=== PATIENT | female | born 1940 | race Caucasian/White ===

== ENCOUNTER 2016-03-13 09:07 | Outpatient (CLI) | payer MEDICARE, BC ==
[2016-03-13 09:32] LABS: #Basophils 0.1 thou/uL (0.0-0.2); #Eosinphils 0.2 thou/uL (0.0-0.7); #Monocytes 0.4 thou/uL (0.11-0.59); %Basophils 1.7 % (0.0-1.0); %Monocytes 8.5 % (0.0-10.0); Hematocrit 41.7 % (36.0-47.0); Mean Platelet Volume 8.4 fL (7.4-10.4); Red Blood Cell (RBC) Count 4.54 mill/uL (4.20-5.40); White Blood Cell (WBC) Count 4.7 thou/uL (4.8-10.8)
[2016-03-13 09:51] LABS: ALT (SGPT) 31 U/L (0-55); AST (SGOT) 22 U/L (5-34); Alkaline Phosphatase 57 U/L (40-150); Bilirubin, Direct 0.2 mg/dL (0.1-0.3); Bilirubin, Total 0.6 mg/dL (0.2-1.2); Protein, Total 6.7 g/dL (5.8-8.1)
== END 2016-03-13 09:08 | disposition home or self-care (01) ==
LOC: BURLAB 09:07
PROVIDERS: ATTEND Allergy & Immunology
DX: L50.1 Idiopathic urticaria (principal)
CPT/HCPCS: 36415; 80076; 85025

== ENCOUNTER 2016-06-01 14:32 | Outpatient (CLI) | payer MEDICARE, BC ==
[2016-06-01 14:55] LABS: #Basophils 0.1 thou/uL (0.0-0.2); #Eosinphils 0.1 thou/uL (0.0-0.7); #Lymphocytes 1.7 thou/uL (1.20-3.40); #Monocytes 0.4 thou/uL (0.11-0.59); #Neutrophils 2.6 thou/uL (1.40-6.50); %Basophils 1.5 % (0.0-1.0); %Eosinophils 2.7 % (0.0-10.0); %Lymphocytes 34.9 % (21.0-51.0); %Monocytes 7.7 % (0.0-10.0); %Neutrophils 53.3 % (42.0-75.0); Hemoglobin 13.8 g/dL (12.0-16.0); Mean Corpuscular HGB CONC 33.2 g/dL (32.0-36.0); Mean Corpuscular Hemoglobin 30.4 pg (27.0-31.0); Mean Corpuscular Volume 91.3 fl (81.0-99.0); Mean Platelet Volume 9.2 fL (7.4-10.4); Platelet Count 148 thou/uL (130-400); RBC Distribution Width 11.9 % (11.5-14.5); Red Blood Cell (RBC) Count 4.56 mill/uL (4.20-5.40); White Blood Cell (WBC) Count 4.9 thou/uL (4.8-10.8)
[2016-06-01 15:46] LABS: ALT (SGPT) 16 U/L (0-55); AST (SGOT) 20 U/L (5-34); Albumin 3.8 g/dL (3.4-4.8); Alkaline Phosphatase 53 U/L (40-150); Anion Gap 15 mmol/L (10-20); BUN (Urea Nitrogen) 15 mg/dL (9.8-20.1); Bilirubin, Total 0.5 mg/dL (0.2-1.2); Calc. Creatinine Clearance 0 mL/min (70-130); Calcium 9.1 mg/dL (7.8-10.44); Carbon Dioxide 25 mmol/L (23-31); Chloride 109 mmol/L (98-107); Estimated GFR-MDRD 53; Glucose 110 mg/dL (83-110); Potassium 4.5 mmol/L (3.5-5.1); Protein, Total 6.8 g/dL (5.8-8.1); Sodium 144 mmol/L (136-145); Uric Acid 7.7 mg/dL (2.6-6.0)
[2016-06-01 21:20] LABS: CRP (Inflammatory) 0.51 mg/dL (= or < 0.5)
[2016-06-03 15:27] LABS: Kappa Lambda Light Chain Ratio 4.17 (0.26-1.65); Kappa Light Chains 70.04 mg/L (3.30-19.40); Lambda Light Chain 16.81 mg/L (5.71-26.30)
== END 2016-06-01 14:33 | disposition home or self-care (01) ==
LOC: BURLAB 14:32
PROVIDERS: ATTEND Internal Medicine Rheumatology
DX: M06.09 Rheumatoid arthritis without rheumatoid factor, multiple sites (principal); R79.9 Abnormal finding of blood chemistry, unspecified; Z79.899 Other long term (current) drug therapy
CPT/HCPCS: 36415; 80053; 83883; 84550; 85025; 85652; 86140

== ENCOUNTER 2016-07-13 13:29 | Outpatient (CLI) | payer MEDICARE, BC ==
[2016-07-13 14:19] LABS: Free T4 (Free Thyroxine) 1.03 ng/dL (0.70-1.48); Thyroid Stimulating Hormone 2.4913 uIU/mL (0.35-4.94)
== END 2016-07-13 13:30 | disposition home or self-care (01) ==
LOC: HPCALD 13:29
PROVIDERS: ATTEND Family Medicine
DX: E03.9 Hypothyroidism, unspecified (principal)
CPT/HCPCS: 36415; 84439; 84443

== ENCOUNTER 2016-08-03 09:17 | Outpatient (CLI) | payer MEDICARE, BC ==
[2016-08-03 09:55] LABS: #Basophils 0.1 thou/uL (0.0-0.2); #Eosinphils 0.1 thou/uL (0.0-0.7); #Lymphocytes 2.1 thou/uL (1.20-3.40); #Monocytes 0.5 thou/uL (0.11-0.59); #Neutrophils 3.4 thou/uL (1.40-6.50); %Basophils 1.4 % (0.0-1.0); %Eosinophils 2.3 % (0.0-10.0); %Lymphocytes 34.3 % (21.0-51.0); %Monocytes 7.3 % (0.0-10.0); %Neutrophils 54.7 % (42.0-75.0); Hemoglobin 15.6 g/dL (12.0-16.0); Mean Corpuscular HGB CONC 34.4 g/dL (32.0-36.0); Mean Corpuscular Hemoglobin 29.7 pg (27.0-31.0); Mean Corpuscular Volume 86.5 fl (81.0-99.0); Mean Platelet Volume 9.1 fL (7.4-10.4); Platelet Count 165 thou/uL (130-400); RBC Distribution Width 12.5 % (11.5-14.5); Red Blood Cell (RBC) Count 5.26 mill/uL (4.20-5.40); White Blood Cell (WBC) Count 6.2 thou/uL (4.8-10.8)
[2016-08-03 10:04] LABS: ALT (SGPT) 20 U/L (8-55); AST (SGOT) 16 U/L (5-34); Albumin 4.1 g/dL (3.4-4.8); Alkaline Phosphatase 61 U/L (40-150); Anion Gap 17 mmol/L (10-20); BUN (Urea Nitrogen) 23 mg/dL (9.8-20.1); Bilirubin, Total 0.6 mg/dL (0.2-1.2); Calc. Creatinine Clearance 0 mL/min (70-130); Calcium 9.4 mg/dL (7.8-10.44); Carbon Dioxide 25 mmol/L (23-31); Chloride 106 mmol/L (98-107); Estimated GFR-MDRD 50; Globulin 3.7 g/dL (2.4-3.5); Glucose 101 mg/dL (83-110); Potassium 4.9 mmol/L (3.5-5.1); Protein, Total 7.8 g/dL (6.0-8.3); Sodium 143 mmol/L (136-145)
[2016-08-03 17:41] LABS: CRP (Inflammatory) Less than 0.50 mg/dL (= or < 0.5)
== END 2016-08-03 09:18 | disposition home or self-care (01) ==
LOC: BURLAB 09:17
PROVIDERS: ATTEND Internal Medicine Rheumatology
DX: M06.09 Rheumatoid arthritis without rheumatoid factor, multiple sites (principal); Z79.899 Other long term (current) drug therapy
CPT/HCPCS: 36415; 80053; 85025; 85652; 86140

== ENCOUNTER 2016-11-09 13:12 | Outpatient (CLI) | payer MEDICARE, BC | END 2016-11-09 13:13 | disposition home or self-care (01) | LOC: HPCALD 13:12 | PROVIDERS: ATTEND Family Medicine | DX: N39.0 Urinary tract infection, site not specified (principal) | CPT/HCPCS: 87077; 87086; 87186 ==

== ENCOUNTER 2019-12-12 14:10 | Outpatient (CLI) | payer MEDICARE, BC ==
--- NOTE | 2019-12-12 17:05 | RAD ---
CHEST TWO VIEWS: 12/12/19 Comparison is made with a 08/07/15 study. Fibrotic changes are seen throughout the lungs as expected. Some areas are slightly more prominent th an they were in 2016, mainly the right mid lung zone and left base. Subtle acute infiltrates would be very difficult to identify against this chronic background. The upper lobes are relatively spared. T he heart size is stable. There is no congestive change or pleural effusion. IMPRESSION: Diffuse fibrotic changes with slight increasing prominence of markings over the four year period. POS: HOME
== END 2019-12-12 14:11 | disposition home or self-care (01) ==
LOC: BURRAD 14:10
PROVIDERS: ATTEND Physician Assistant
DX: J84.112 Idiopathic pulmonary fibrosis (principal); R07.89 Other chest pain; M06.09 Rheumatoid arthritis without rheumatoid factor, multiple sites
CPT/HCPCS: 71046

== ENCOUNTER 2023-08-03 11:35 | Outpatient (CLI) | payer MEDICARE, BC | END 2023-08-03 11:36 | disposition home or self-care (01) | LOC: BURRAD 11:35 | PROVIDERS: ATTEND Family Medicine | DX: J42 Unspecified chronic bronchitis (principal); J84.10 Pulmonary fibrosis, unspecified | CPT/HCPCS: 71046 ==